=== PATIENT | male | born 1970 | race Caucasian/White ===

== ENCOUNTER → 2016-09-02 | Outpatient (CLI) | payer OTHER ==
[~2016-09-02] MED LIST: FLEXERIL10 MG PO; LORTAB 5/3251 TAB PO; PREDNICOT20 MG PO
== END | disposition home or self-care (01) ==
LOC: RAD 06:51
DX: M43.22 Fusion of spine, cervical region (principal); M54.2 Cervicalgia; R20.0 Anesthesia of skin

== ENCOUNTER 2016-10-10 15:29 | Inpatient (IN) | payer OTHER ==
[~2016-10-10] VITALS: Ht 177.8 cm; Wt 108.9 kg
--- NOTE | ~2016-10-10 | PR ---
[place], [place] PROGRESS NOTE NAME: [facility]O [id number] UNIT #: [id number] ROOM: 425 DOCTOR: LILI RAROYOSEPTEMBER BIRTHDATE: [birth year] DOS: 10/14/2016 SUBJECTIVE: The patient is a 46-year-old male who is being followed for a left arm cellulitis and olecranon septic bursitis. He has been evaluated by Ortho who feels no interventions are needed. His arm continues to significantly improve day by day. He is currently on vancomycin. Blood cultures are negative. He denies any fevers, chills, nausea, vomiting, or diarrhea. No rash or itch. No cough or shortness of breath. Pain in the left arm is improving. CURRENT MEDICATIONS: Include [place], Lovenox, Prilosec, vancomycin, Flexeril, Restoril. LABORATORY DATA: New labs today show BUN 10, creatinine 0.8. Cultures as above. PHYSICAL EXAMINATION: VITAL SIGNS: Show temperature 97.8, pulse 70, respirations 18, BP 148/89. GENERAL: A 46-year-old male in no acute distress. HEAD, EYES, EARS, NOSE, AND THROAT: Normocephalic. No thrush. LUNGS: Clear to auscultation bilaterally. Respirations even and unlabored. HEART: Regular rhythm. No murmur appreciated. ABDOMEN: Soft, nontender. EXTREMITIES: No edema. Left arm erythema around the elbow and induration continues to improve. There are no areas of fluctuance. Does have tenderness over the olecranon. Again, erythema and edema improving. SKIN: Otherwise, warm, dry, free of rashes. ASSESSMENT: Left arm cellulitis and olecranon bursitis. PLAN: At this point, discharge is being planned. He can go as long as his linezolid is preauthorized through his insurance by case management. We will give him another 10 days of antibiotics. I did discuss with him if he did not have complete resolutions of his symptoms by the end of his antibiotics or if he had issues with the antibiotics or worsening of his symptoms upon discharge including increased swelling, redness, or pain, contact our office. Case discussed with Dr. Akira Humphries. JUVENCIO PEARSON CNP [place], [place] PROGRESS NOTE NAME: BELINDA GALLARDO UNIT #: [id number] ROOM: 425 DOCTOR: LILI ARROYOSEPTEMBER BIRTHDATE: [birth year] AKIRA HUMPHRIES MD CM:PNGILSON [id number] SEPTEMBER LILI ARROYO 10/14/16 1446 interface
--- NOTE | ~2016-10-10 | CON ---
[place], [place] REPORT OF CONSULTATION NAME: BELINDA GALLARDO UNIT #: [id number] ROOM: 425 DOCTOR: LILI ARROYOSEPTEMBER BIRTHDATE: [birth year] DOS: 10/13/2016 HISTORY OF PRESENT ILLNESS: The patient is a 46-year-old male who was admitted on 10/10/2016 for swelling and redness of his left arm and had begun 3 days prior to admission with worsening. He had had a fall on his leather jacket and hit his arm. 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 He was started on vancomycin and Zosyn on admission; he was also noted to have a small burn on his left elbow, which he states has not been problematic. He has had significant improvement of the redness and swelling of the left arm with antibiotics, again Zosyn and vancomycin. His blood cultures are sterile. He had leukocytosis 15,000 at the time of admission, which has improved. ID is consulted for left arm cellulitis and olecranon bursitis. PAST MEDICAL HISTORY: As above as well as GERD, umbilical hernia repair, neck surgery. 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 Chews tobacco since he was a teenager. Drinks occasionally. No illicit drug use. FAMILY MEDICAL HISTORY: Father at the age of 62 from colon cancer. Mother has had breast cancer. ALLERGIES: No known drug allergies. CURRENT MEDICATIONS: Include [place], Lovenox, Prilosec, Zosyn, Flexeril, vancomycin, Restoril. LABORATORY DATA: Cultures as reviewed above. WBCs are down to 9.4, they were originally 15.3 at the time of admission. BUN 14, creatinine 0.73. LFTs were normal on admission. His last vancomycin trough was 10.1. REVIEW OF SYSTEMS: As above in history of present illness. States he has not been feeling all that well for the last couple of days, but denies any fevers or shaking chills. No nausea, vomiting or diarrhea. No rash or itch. No cough or shortness of breath. No headaches or dizziness. No chest pain or palpitations. Again, the redness and swelling in the left arm and elbow have improved significantly since admission. He denies any prior history of skin abscesses or skin infections. Again he has small burn on the left elbow that is healing well. He did have an ultrasound of the left arm that was negative for deep vein thrombosis. Review of systems otherwise unremarkable, no lower extremity edema. PHYSICAL EXAMINATION: VITAL SIGNS: Show a temp of 97.9, pulse 83, respirations 18, BP 152/86. GENERAL: A 46-year-old male in no acute distress. HEAD, EYES, EARS, NOSE AND THROAT: Normocephalic. Mucous membranes pink and moist. No thrush. NECK: No cervical lymphadenopathy. [place], [place] REPORT OF CONSULTATION NAME: BELINDA GALLARDO UNIT #: [id number] ROOM: 425 DOCTOR: LILI ARROYOSEPTEMBER BIRTHDATE: [birth year] LUNGS: Clear to auscultation bilaterally. Respirations even and unlabored. HEART: Regular rhythm. No murmur appreciated. ABDOMEN: Soft, nontender, positive bowel sounds, nondistended. EXTREMITIES: Lower extremities: No edema or deformity. Left upper extremity +2 to 3 edema with erythema over the elbow and tenderness over the olecranon, also has a tiny scab quite close to the olecranon where again he was burned at work that has nearly healed. SKIN: Otherwise, warm, dry and intact, free of rashes. ASSESSMENT: Left olecranon bursitis with cellulitis of the left arm. PLAN: We can stop the Zosyn. This is generally caused by Staph aureus. Continue the vancomycin. Case discussed with Dr. Akira Humphries. JUVENCIO PEARSON CNP AKIRA HUMPHRIES MD CM:CONSTR:REPORT OF CONSULTATION 1704 10/14/16 0945 interface
--- NOTE | ~2016-10-10 | CON ---
[place], [place] REPORT OF CONSULTATION NAME: BELINDA GALLARDO UNIT #: [id number] ROOM: 425 DOCTOR: KRISTEL KILGORE,AKIRA Phillpi BIRTHDATE: [birth year] DOS: 10/13/2016 ADDENDUM I agree with the above plans as outlined after reviewing the chart, labs and radiographs. We will follow the patient clinically and adjust accordingly. AKIRA HUMPHRIES MD CM:CONSTR:REPORT OF CONSULTATION 1902 10/14/16 0946 interface
[2016-10-10 15:37] VITALS: BP 154/96
[2016-10-10] MEDS ORDERED: PRILOSEC20 M1 PO (15:42)
[2016-10-10 16:33] LABS: BASO % 0.2 % (0.0-1.0); EOS # 0.1 10*3/uL (0.0-0.4); EOS % 0.8 % (1.0-4.0); HEMATOCRIT 39.1 % (42.0-52.0); HEMOGLOBIN 13.6 g/dl (14.0-18.0); IG # 0.1 10*3/uL (0.0-0.1); LYMPH # 2.6 10*3/uL (1.3-4.4); LYMPH % 16.8 % (27.0-41.0); MEAN CELL VOLUME 90.9 fl (80.0-94.0); MEAN CORPUSCULAR HGB 31.6 pg (27.0-31.0); MEAN CORPUSCULAR HGB CONC 34.8 g/dl (33.0-37.0); MEAN PLATELET VOLUME 8.3 fl (9.6-12.3); MONO # 1.1 10*3/uL (0.1-1.0); MONO % 7.5 % (3.0-9.0); NEUT # 11.4 10*3/uL (2.3-7.9); NEUT % 74.2 % (47.0-73.0); PLATELET COUNT AUTOMATED 246 10*3/uL (130-400); RED CELL DISTRI WIDTH 12.4 % (0-14.5); WHITE BLOOD COUNT 15.3 10*3/uL (4.8-10.8)
[2016-10-10 16:47] LABS: ALBUMIN 3.5 gm/dl (3.1-4.5); ALKALINE PHOSPHATASE 53 U/L (45-117); BILIRUBIN, TOTAL 0.4 mg/dl (0.2-1.0); BUN 17 mg/dl (7-24); CARBON DIOXIDE 26 mmol/L (21-32); CHLORIDE 109 mmol/L (98-107); EST GLOM FILT AFRICAN AMERICAN > 60 ml/min; GLUCOSE 111 mg/dL (65-99); POTASSIUM 3.9 mmol/L (3.5-5.1); SGOT/AST 31 IU/L (3-35); SGPT/ALT 45 U/L (12-78); SODIUM 142 mmol/L (136-145); TOTAL PROTEIN 6.9 gm/dL (6.4-8.2)
[2016-10-10 17:00] VITALS: BP 146/90
[2016-10-10 20:00] VITALS: BP 138/74
[2016-10-11] VITALS: BP 126/67
[2016-10-11 06:07] LABS: BASO % 0.3 % (0.0-1.0); EOS # 0.2 10*3/uL (0.0-0.4); EOS % 1.6 % (1.0-4.0); HEMATOCRIT 37.2 % (42.0-52.0); HEMOGLOBIN 12.3 g/dl (14.0-18.0); IG # 0.1 10*3/uL (0.0-0.1); LYMPH # 2.4 10*3/uL (1.3-4.4); LYMPH % 19.8 % (27.0-41.0); MEAN CELL VOLUME 93.2 fl (80.0-94.0); MEAN CORPUSCULAR HGB 30.8 pg (27.0-31.0); MEAN CORPUSCULAR HGB CONC 33.1 g/dl (33.0-37.0); MEAN PLATELET VOLUME 8.3 fl (9.6-12.3); MONO # 0.9 10*3/uL (0.1-1.0); MONO % 7.7 % (3.0-9.0); NEUT # 8.4 10*3/uL (2.3-7.9); PLATELET COUNT AUTOMATED 212 10*3/uL (130-400); RED BLOOD COUNT 3.99 10*6/uL (4.50-5.90); RED CELL DISTRI WIDTH 12.4 % (0-14.5)
[2016-10-11 06:28] LABS: BUN 14 mg/dl (7-24); CARBON DIOXIDE 25 mmol/L (21-32); CHLORIDE 110 mmol/L (98-107); EST GLOM FILT AFRICAN AMERICAN > 60 ml/min; GLUCOSE 99 mg/dL (65-99); POTASSIUM 4.1 mmol/L (3.5-5.1); SODIUM 142 mmol/L (136-145)
[2016-10-11 07:33] LABS: HEMOGLOBIN A1c 5.4 % (4.8-5.6)
[2016-10-11 08:00] VITALS: BP 134/62
[2016-10-11 08:45] LABS: VITAMIN D, 25-HYDROXY 37.7 ng/mL (30-100)
[2016-10-11 08:46] LABS: FOLIC ACID 6.82 ng/mL (>5.38)
[2016-10-11 12:00] VITALS: BP 150/76
[2016-10-11 16:00] VITALS: BP 130/60
[2016-10-11 20:00] VITALS: BP 122/63
[2016-10-12] VITALS: BP 114/71
[2016-10-12 06:11] LABS: BASO % 0.3 % (0.0-1.0); EOS # 0.2 10*3/uL (0.0-0.4); EOS % 2.3 % (1.0-4.0); HEMATOCRIT 37.2 % (42.0-52.0); HEMOGLOBIN 12.5 g/dl (14.0-18.0); LYMPH % 31.3 % (27.0-41.0); MEAN CELL VOLUME 93.2 fl (80.0-94.0); MEAN CORPUSCULAR HGB 31.3 pg (27.0-31.0); MEAN CORPUSCULAR HGB CONC 33.6 g/dl (33.0-37.0); MEAN PLATELET VOLUME 8.5 fl (9.6-12.3); MONO # 0.9 10*3/uL (0.1-1.0); MONO % 9.2 % (3.0-9.0); NEUT # 5.3 10*3/uL (2.3-7.9); NEUT % 56.5 % (47.0-73.0); PLATELET COUNT AUTOMATED 244 10*3/uL (130-400); RED BLOOD COUNT 3.99 10*6/uL (4.50-5.90); RED CELL DISTRI WIDTH 12.6 % (0-14.5); WHITE BLOOD COUNT 9.4 10*3/uL (4.8-10.8)
[2016-10-12 08:00] VITALS: BP 122/78
[2016-10-12 12:00] VITALS: BP 116/70
[2016-10-12 20:00] VITALS: BP 108/59
[2016-10-13] VITALS: BP 110/60
[2016-10-13 08:00] VITALS: BP 116/74
[2016-10-13 11:24] VITALS: BP 138/84
[2016-10-13 16:00] VITALS: BP 152/86
[2016-10-13 20:00] VITALS: BP 143/74
[2016-10-14] VITALS: BP 121/67
[2016-10-14 06:37] LABS: BUN 10 mg/dl (7-24); EST GLOM FILT AFRICAN AMERICAN > 60 ml/min
[2016-10-14 06:39] LABS: VANCOMYCIN TROUGH 14.3 ug/mL (10-20)
[2016-10-14 08:00] VITALS: BP 142/91
[2016-10-14 12:00] VITALS: BP 148/89
[2016-10-14] MEDS ORDERED: ZYVOX600 MG PO (15:31)
== END 2016-10-14 16:17 | disposition home or self-care (01) | DRG 872 ==
LOC: ED 15:29 → EDHOLD 16:57 → 4E 17:42
PROVIDERS: Family Medicine; Nurse Practitioner Family; Student in an Organized Health Care Education/Training Program
DX: A41.9 Sepsis, unspecified organism (principal); L03.114 Cellulitis of left upper limb; D64.9 Anemia, unspecified; E66.9 Obesity, unspecified; K21.9 Gastro-esophageal reflux disease without esophagitis; M70.22 Olecranon bursitis, left elbow; Z71.6 Tobacco abuse counseling; Z80.0 Family history of malignant neoplasm of digestive organs; Z80.3 Family history of malignant neoplasm of breast; Z79.899 Other long term (current) drug therapy; Z68.34 Body mass index [BMI] 34.0-34.9, adult